=== PATIENT | male | born 1970 | race Two or more races ===

== ENCOUNTER 2020-04-28 22:14 | Inpatient (IN) | payer MEDICAID ==
[~2020-04-28] VITALS: Ht 167.6 cm; Wt 76.9 kg
[2020-04-28 22:15] VITALS: BP 148/89
--- NOTE | 2020-04-28 22:15 | NUR ---
ED Nurse Note: brought in by teri Farrar from [facility] d/t elevated HR of 140 and temp of 101. pt presented to ed with trach and was bagged in to the room. Pt was diaphoretic upon arrival. Pt was tachy of 140s, RT at bedside for vent placement (see intervention for setting), droplet precaution observed, pt placed on monitoring analyst, ermd at bedside.
[2020-04-28] MEDS ORDERED: ATORVASTATIN CA20 MG ORAL (22:30)
[2020-04-28] MEDS ORDERED: DOCUSATE SODIU100 MG GT (22:30)
[2020-04-28] MEDS ORDERED: PROTONIX40 MG GT (22:30)
[2020-04-28] MEDS ORDERED: METOPROLOL TART25 MG GT (22:30)
[2020-04-28] MEDS ORDERED: ASPIRIN81 M3 PO (22:30)
[2020-04-28] MEDS ORDERED: BRILINTA90 MG PO (22:30)
--- NOTE | 2020-04-28 22:30 | NUR ---
ED Nurse Note: barnett inserted per ermd order with 16fr, draining and patent. XR at bedside.
[2020-04-28] MEDS ORDERED: Vancomycin 1 GM in NS 275 ML IVPB ONE (22:45)
[2020-04-28] MEDS ORDERED: Piperacillin/Tazobactam 3.375 GM in NS 110 ML IVPB ONE (22:45)
[2020-04-28 22:50] LABS: BASOPHILS % (AUTO) 0.8 % (0.0-2.0); EOSINOPHILS % (AUTO) 1.1 % (0.0-3.0); HEMOGLOBIN 11.5 G/DL (14.2-18.0); LYMPHOCYTES % (AUTO) 27.9 % (20.0-45.0); MEAN CORPUSCULAR VOLUME 90 FL (80-99); MONOCYTES % (AUTO) 6.7 % (1.0-10.0); NEUTROPHILS % (AUTO) 63.6 % (45.0-75.0); PLATELET COUNT 408 K/UL (150-450); RED CELL DISTRIBUTION WIDTH 13.5 % (11.6-14.8); WHITE BLOOD COUNT 11.4 K/UL (4.8-10.8)
[2020-04-28 22:50] LABS: APPEARANCE,URINE CLEAR; BILIRUBIN, URINE NEGATIVE (NEGATIVE); GLUCOSE, URINE (UA) NEGATIVE (NEGATIVE); KETONES,URINE 1+ (NEGATIVE); LEUKOCYTE ESTERASE ,URINE 1+ (NEGATIVE); NITRITE,URINE NEGATIVE (NEGATIVE); PH,URINE 6 (4.5-8.0); PROTEIN,URINE 1+ (NEGATIVE); UROBILINOGEN,URINE 4 MG/DL (0.0-1.0)
[2020-04-28 22:54] LABS: COLOR,URINE PALE YELLOW
[2020-04-28 23:10] LABS: CALCIUM 9.4 MG/DL (8.5-10.1); CREATININE 1.3 MG/DL (0.55-1.30); POTASSIUM 4.4 MMOL/L (3.5-5.1)
[2020-04-28 23:13] LABS: INR 1.1 (0.9-1.1)
--- NOTE | 2020-04-28 23:15 | NUR ---
renee lopez [phone]
[2020-04-28 23:23] LABS: ALBUMIN/GLOBULIN RATIO 0.6 (1.0-2.7); BILIRUBIN,TOTAL 0.6 MG/DL (0.2-1.0); CKMB 5.6 NG/ML (0.0-3.6)
[2020-04-29] VITALS (33 sets, daily range): BP systolic 89–166; BP diastolic 6–128
--- NOTE | 2020-04-29 00:46 | NUR ---
ED Nurse Note: gave report to Ladan LAKE
--- NOTE | 2020-04-29 01:15 | NUR ---
TRANSFER TO FLOOR: Patient transferred to [facility]- via gurney in stable condition as ordered, per dr. Brambila. Report given to Ladan LAKE.
--- NOTE | 2020-04-29 01:19 | Emergency Room Report ---
History of Present Illness General Chief Complaint: Dyspnea/Respdistress Source: Medical Record Present Illness HPI 50-year-old male with history of STEMI, respiratory failure, tracheostomy not ventilator dependent here with shortness of breath, hypoxia, cough, fever. At the halfway the patient was noted to be tachycardic and have low oxygen saturation. When ambulance arrived the nurses were providing [id number] ventilation. They said the patient is not normally ventilator dependent. There was pink frothy sputum coming from the tracheostomy site. Patient unable to answer question secondary to his normal baseline altered mental status. Allergies: Coded Allergies: No Known Allergies (Unverified , 04/28/20) COVID-19 Screening Contact w/high risk pt: Yes Experienced COVID-19 symptoms?: No COVID-19 Testing performed [employer]: Yes - 04/17/20 COVID-19 Screening: Negative COVID-19 COVID-19 Testing Source: [facility] Nursing Documentation-[facility] Past Medical History: No History, Except For Hx Cardiac Problems: Yes - STEMI,CAD, HYPERLIPIDEMIA Hx Hypertension: Yes Hx Diabetes: Yes Hx Gastrointestinal Problems: Yes - GERD Review of Systems All Other Systems: limited Physical Exam Vital Signs Date Time Temp Pulse Resp B/P (MAP) Pulse Ox O2 Delivery O2 Flow Rate FiO2 04/28/20 22:15 100.9 140 24 150/100 (117) 15 Mechanical Ventilator 15.0 04/28/20 22:15 100 Sp02 EP Interpretation: reviewed General Appearance: other - Appears chronically ill. Diaphoretic. Tachypneic and actively coughing Head: normocephalic, atraumatic Eyes: bilateral eye normal inspection, bilateral eye PERRL ENT: hearing grossly normal, normal pharynx, no angioedema Neck: full range of motion, supple/symm/no masses, other - Tracheostomy in place without any surrounding erythema, induration, active bleeding. Suction positive for pink frothy sputum Respiratory: chest non-tender, other - Tachypneic. Diffuse mechanical breath sounds with overlying rales and rhonchi Cardiovascular #1: no edema, other - Tachycardic 140 bpm, regular rhythm Cardiovascular #2: 2+ carotid (R), 2+ carotid (L), 2+ radial (R), 2+ radial (L), 2+ dorsalis pedis (R), 2+ dorsalis pedis (L) Gastrointestinal: normal bowel sounds, non tender, soft, non-distended, no guarding, no rebound, other - G-tube in place without any surrounding erythema or induration. No rebound or guarding or distention Rectal: deferred Genitourinary: normal inspection, no CVA tenderness Musculoskeletal: back normal, normal range of motion, calf tenderness, gait/station normal, non-tender Neurologic: other - Alert and oriented x0 at baseline. Moving all extremities non-purposefully Psychiatric: other - Altered, chronically ill, nonverbal at baseline Lymphatic: no adenopathy Medical Decision Making Diagnostic Impression: Primary Impression: Respiratory distress Additional Impressions: Septic shock Pneumonia Ventilator associated pneumonia Tachycardia UTI (urinary tract infection) ER Course EKG: Rate 139 bpm. No ischemia, intervals WNL. No ectopy Rhythm strip: patient monitored for arrhythmias - no malignant dysrhythmias, runs of PVCs, nor pauses noted Total critical care time: Approximately 45 minutes Due to a high probability of clinically significant, life threatening deterioration, the patient required the highest level of preparedness to intervene emergently and I personally spent this critical care time directly and personally managing the patient. This critical care time included obtaining a history, examining the patient, pulse oximetry, ordering and reviewing studies, ordering treatments, evaluating response to treatment and updating management plan as needed, frequent reassessment and discussion with other providers as w ell as arranging for ultimate disposition. This critical to care time was performed to assess and manage the high probability of life-threatening deterioration that could result in multiorgan failure. This critical care time is separate from the separately billable procedures and treating other patients. Chest x-ray: Hazy opacities in left lower lobe and right lower lobe. No eff usion. No bony abnormalities. Mediastinum normal. Tracheostomy in place Laboratory Tests Test 04/28/20 22:10 04/28/20 22:25 04/28/20 22:40 04/28/20 23:30 Urine Color Pale yellow Urine Appearance Clear Urine pH 6 (4.5-8.0) Urine Specific [place] 1.025 (1.005-1.035) Urine Protein 1+ (NEGATIVE) H Urine Glucose (UA) Negative (NEGATIVE) Urine Ketones 1+ (NEGATIVE) H Urine Blood Negative (NEGATIVE) Urine Nitrite Negative (NEGATIVE) Urine Bilirubin Negative (NEGATIVE) Urine Urobilinogen 4 MG/DL (0.0-1.0) H Urine Leukocyte Esterase 1+ (NEGATIVE) H Urine RBC 0 /HPF (0 - 0) Urine WBC 0-2 /HPF (0 - 0) Urine Squamous Epithelial Cells Occasional /LPF Urine Bacteria Occasional /HPF (NONE) Urine Mucus Occasional /LPF White Blood Count 11.4 K/UL (4.8-10.8) H Red Blood Count 4.00 M/UL (4.70-6.10) L Hemoglobin 11.5 G/DL (14.2-18.0) L Hematocrit 36.0 % (42.0-52.0) L Mean Corpuscular Volume 90 FL (80-99) Mean Corpuscular Hemoglobin 28.7 PG (27.0-31.0) Mean Corpuscular Hemoglobin Concent 32.0 G/DL (32.0-36.0) Red Cell Distribution Width 13.5 % (11.6-14.8) Platelet Count 408 K/UL (150-450) Mean Platelet Volume 8.6 FL (6.5-10.1) Neutrophils (%) (Auto) 63.6 % (45.0-75.0) Lymphocytes (%) (Auto) 27.9 % (20.0-45.0) Monocytes (%) (Auto) 6.7 % (1.0-10.0) Eosinophils (%) (Auto) 1.1 % (0.0-3.0) Basophils (%) (Auto) 0.8 % (0.0-2.0) Prothrombin Time 11.7 SEC (9.30-11.50) H Prothrombin Time INR 1.1 (0.9-1.1) Activated Partial Thromboplast Time 24 SEC (23-33) Sodium Level 147 MMOL/L (136-145) H Potassium Level 4.4 MMOL/L (3.5-5.1) Chloride Level 107 MMOL/L (98-107) Carbon Dioxide Level 23 MMOL/L (21-32) Anion Gap 18 mmol/L (5-15) H Blood Urea Nitrogen 28 mg/dL (7-18) H Creatinine 1.3 MG/DL (0.55-1.30) Estimated Glomerular Filtration Rate 58.0 mL/min (>60) Glucose Level 175 MG/DL (74-106) H Lactic Acid Level 7.00 mmol/L (0.4-2.0) H 3.50 mmol/L (0.66-2.22) H Calcium Level 9.4 MG/DL (8.5-10.1) Magnesium Level 2.6 MG/DL (1.8-2.4) H Total Bilirubin 0.6 MG/DL (0.2-1.0) Aspartate Amino Transferase (AST) 89 U/L (15-37) H Alanine Aminotransferase (ALT) 49 U/L (12-78) Alkaline Phosphatase 194 U/L (46-116) H Total Creatine Kinase 258 U/L (26-308) Creatine Kinase MB 5.6 NG/ML (0.0-3.6) H Creatine Kinase MB Relative Index 2.1 Troponin I 0.055 ng/mL (0.000-0.056) Total Protein 7.9 G/DL (6.4-8.2) Albumin 3.0 G/DL (3.4-5.0) L Globulin 4.9 g/dL Albumin/Globulin Ratio 0.6 (1.0-2.7) L Arterial Blood pH 7.517 (7.350-7.450) Arterial Blood Partial Pressure CO2 27.8 mmHg (35.0-45.0) L Arterial Blood Partial Pressure O2 482.5 mmHg (75.0-100.0) H Arterial Blood HCO3 22.0 mmol/L (22.0-26.0) Arterial Blood Oxygen Saturation 99.6 % (95-100) Arterial Blood Base Excess 0.2 (-2-2) Hunter Test Positive Microbiology Date/Time Source Procedure Growth Status 04/28/20 23:30 Nasal Nares - Final Complete 04/28/20 23:30 Nasal Nares - Final Complete 04/28/20 22:25 Nasopharynx SARS-CoV-2 RdRp Gene Assay - Final Complete 50-year-old male with tracheostomy not normally ventilator dependent here with shortness of breath. Patient was actively coughing and diaphoretic on arrival to the emergency department. EKG showed sinus tachycardia with evidence of patient's old anterolateral infarct. No active ST or T wave abnormalities. Troponin negative. Chest x-ray showed left lower lobe and right lower lobe consolidations. Patient was febrile at the halfway. Blood pressure remained normal throughout his stay in the emergency department but patient was tachycardic in the 150s on arrival to the emergency department. He immediately received a 30 cc/kg fluid bolus. Heart rate improved to the 120s. Remained in normal sinus rhythm. Started on vancomycin and Zosyn for treatment of ventilator and hospital associated pneumonia. Patient also had evidence of urinary tract infection. Lactic acid 7.0. Repeat lactic acid to be drawn after the 30 cc/kg fluid bolus is completed. Admitted to ICU for septic shock in critical condition. Last Vital Signs Date Time Temp Pulse Resp B/P (MAP) Pulse Ox O2 Delivery O2 Flow Rate FiO2 04/29/20 00:35 99.8 135 33 113/67 100 Mechanical Ventilator 15.0 80 Referrals: Jay Brambila MD (PCP) Srini Bragg M.D. Apr 29, 2020 01:19
--- NOTE | 2020-04-29 01:26 | NUR ---
NURSE NOTES: RECEIVED PATIENT FROM ER NURSE ALEKSANDRA LUCERO VIA SUSSY. PATIENT DROWSY, ON TRACH TO VENT, SIMV 14/TV500/FIO2 70%/PEEP5, O2 SATURATION 1000% NOTED, HR 130'S/MIN ST, ABDOMEN NON TENDER, G TUBE INTACT AND PATENT, CLAMP STATUS, F/C INTACT AND PATENT, DARK YELLOW URINE OUTED, PPL TO RIGHT AC 20G AND LEFT FA 20G, INTACT AND PATENT, PRESSURE SORE TO RIGHT INNER HEEL AND LEFT EAR, MADE LOWER BED POSITION, ON BED ALARM AND LOCKED, WILL CONTINUE TO MONITOR.
--- NOTE | 2020-04-29 02:02 | NUR ---
NURSE NOTES: CALLED DR. LING REGARDING ADMISSION ORDER THAT LEFT MESSAGE AWAIT CALL.
--- NOTE | 2020-04-29 02:24 | NUR ---
NURSE NOTES: le; Patient diaphoretic, open eyes, checked BS 127mg/d noted, applied cooling measure, will continue to monitor.
--- NOTE | 2020-04-29 03:43 | NUR ---
NURSE NOTES: [address] LING REGARDING ADMISSION ORDER THAT LEFT MESSAGE AWAIT CALL AT 0336AM. LET THE ELASTIC ATTACHER OVERLOCK AND WAS AWARE.
--- NOTE | 2020-04-29 04:19 | NUR ---
NURSE NOTES: Called back from the field assembly supervisor that she called and left message, after 30 mins, MD did not callback, she will call MD's home phone.
--- NOTE | 2020-04-29 05:10 | NUR ---
NURSE NOTES: PATIENT ASLEEP STATUS, NO PAIN OR SOB NOTED, HR 120'S/MIN ST, NO ACUTE DISTRESS NOTED AT THIS TIME.
--- NOTE | 2020-04-29 05:40 | NUR ---
NURSE NOTES: RECEIVED ORDER FROM DR. LING, CARRIED OUT AND CALLED RT REGARDING VENT SETTING AC 12/TV 500/FIO2 50%/PEEP 5, ORDERED.
--- NOTE | 2020-04-29 07:23 | NUR ---
HAND-OFF: Report given to ALEKSANDRA LIANG.
--- NOTE | 2020-04-29 08:00 | NUR ---
NURSE NOTES: Pt was assessed after receiving change of shift report from Rohit RN. Pt is obtunded, eyes open, however does not follow commands, withdraws to pain. Pt is on trach to vent, Shiley 6 cuffed, with vent settings AC12, VT500, Peep 5, FIO2 50%, maintaining 100% O2Sat. Bilateral inspiratory/expiratory rhonchi is noted on auscultation. Pt has moderate amount of light pinkish/white thick secretions. NSR on cardiac cath technician. Temp 98.8F axillary. IV fluid NS is infusing at 100ml/hour via peripheral IV access on left wrist #20G. Pt also has 2nd peripheral IV access on right AC #20G, saline locked, patent/intact. PEG, with dressing dry/intact, tube patent, however currently clamped. Luis catheter is present, draining cloudy/dark yellow urine. Skin alterations are present, including left ear open wound and right inner heel DTI. HOB is at 30 degrees, bed locked, three side rails up, call light within reach. Will continue with plan of care.
--- NOTE | 2020-04-29 08:02 | NUR ---
RD ASSESSMENT & RECOMMENDATIONS SEE CARE ACTIVITY FOR COMPLETE ASSESSMENT DAILY ESTIMATED NEEDS: Needs based on Critical care, 67.4kg abw 22-28 kcals/kg 5391-3538 total kcals 1.25-2 g protein/kg 84-135 g total protein 25-30 mL/kg 0837-8901 total fluid mLs NUTRITION DIAGNOSIS: Swallowing difficulty r/t respiratory failure as evidenced by pt is trach and peg dep. CURRENT TF:Glucerna 1.2 @60ml/hr ENTERAL NUTRITION RECOMMENDATIONS: Glucerna 1.2 @60ml/hr x24 hrs + PROSOURCE 1 pack qdaily to provide 1440ml, 1728 kcal, 86g + 11g pro, 1159ml free H2O - Maintain current TF rate and goal as tolerated. - Add Prosource 1 pack qdaily to better meet est pro needs - Flush per MD. HOB over 30 degrees ADDITIONAL RECOMMENDATIONS: 1) Maintain calibrated daily weights 2) Rec to increase water flushes for elev Na and elev BUN 3) Rec WC eval by WC nurse. Add LILIAN BID via PEG 4) Rec POC, niss, accuchecks
[2020-04-29 08:14] LABS: BASOPHILS % (AUTO) 0.6 % (0.0-2.0); EOSINOPHILS % (AUTO) 0.3 % (0.0-3.0); HEMATOCRIT 31.7 % (42.0-52.0); HEMOGLOBIN 10.2 G/DL (14.2-18.0); LYMPHOCYTES % (AUTO) 17.2 % (20.0-45.0); MEAN CORPUSCULAR VOLUME 86 FL (80-99); MONOCYTES % (AUTO) 7.3 % (1.0-10.0); NEUTROPHILS % (AUTO) 74.6 % (45.0-75.0); PLATELET COUNT 320 K/UL (150-450); RED BLOOD COUNT 3.66 M/UL (4.70-6.10); RED CELL DISTRIBUTION WIDTH 12.6 % (11.6-14.8); WHITE BLOOD COUNT 9.5 K/UL (4.8-10.8)
[2020-04-29 08:23] LABS: ANION GAP 8 mmol/L (5-15); BLOOD UREA NITROGEN 23 mg/dL (7-18); CALCIUM 8.6 MG/DL (8.5-10.1); CARBON DIOXIDE 26 MMOL/L (21-32); CHLORIDE 113 MMOL/L (98-107); CREATININE 0.9 MG/DL (0.55-1.30); POTASSIUM 3.6 MMOL/L (3.5-5.1); SODIUM 147 MMOL/L (136-145)
[2020-04-29] MEDS: Ascorbic Acid 500mg tab GT SCH (09:42)
[2020-04-29] MEDS: Zinc Sulfate 220mg GT SCH (09:42)
[2020-04-29] MEDS: Aspirin Baby 81mg NG SCH (09:42)
[2020-04-29] MEDS: Piperacillin/Tazobactam 3.375 GM in NS 110 ML IVPB SCH ×2 (09:42→14:59)
[2020-04-29] MEDS: Docusate 100mg/10ml Liq NG SCH ×3 (09:43→17:16)
[2020-04-29] MEDS: Vancomycin 750mg/NS 275ml IVPB SCH ×4 (09:44→22:34)
--- NOTE | 2020-04-29 10:00 | NUR ---
NURSE NOTES: Pt was seen by Dr. Brambila. Order was received to add Plavix 75mg x1 daily via GT. Order was processed, and med administered along with all AM meds. Oral care was done and pt suctioned. Pt was repositioned for comfort.
--- NOTE | 2020-04-29 10:05 | History & Physical ---
History and Physical History & Physicial 50-year-old male with history of STEMI, respiratory failure, tracheostomy presented with shortness of breath, hypoxia, cough, fever. At the senior care the patient was noted to be tachycardic and have low oxygen saturation. patient with poor LOC due to TBI and significant brain injury PMH trach, GT, craniotomy, ICB MEDS/ALLERGIES reviewed and reconciled PHYSICAL WDWN NAD trach clear breath sounds bilaterally without rhonchi or wheeze S1S2RR tachy without MRG NABS nontender GT no CCE poor LOC SOCIAL snf patient; bed bound Laboratory Tests Test 04/28/20 22:10 04/28/20 22:25 04/28/20 22:40 04/28/20 23:30 Urine Color Pale yellow Urine Appearance Clear Urine pH 6 (4.5-8.0) Urine Specific [place] 1.025 (1.005-1.035) Urine Protein 1+ (NEGATIVE) H Urine Glucose (UA) Negative (NEGATIVE) Urine Ketones 1+ (NEGATIVE) H Urine Blood Negative (NEGATIVE) Urine Nitrite Negative (NEGATIVE) Urine Bilirubin Negative (NEGATIVE) Urine Urobilinogen 4 MG/DL (0.0-1.0) H Urine Leukocyte Esterase 1+ (NEGATIVE) H Urine RBC 0 /HPF (0 - 0) Urine WBC 0-2 /HPF (0 - 0) Urine Squamous Epithelial Cells Occasional /LPF Urine Bacteria Occasional /HPF (NONE) Urine Mucus Occasional /LPF White Blood Count 11.4 K/UL (4.8-10.8) H Red Blood Count 4.00 M/UL (4.70-6.10) L Hemoglobin 11.5 G/DL (14.2-18.0) L Hematocrit 36.0 % (42.0-52.0) L Mean Corpuscular Volume 90 FL (80-99) Mean Corpuscular Hemoglobin 28.7 PG (27.0-31.0) Mean Corpuscular Hemoglobin Concent 32.0 G/DL (32.0-36.0) Red Cell Distribution Width 13.5 % (11.6-14.8) Platelet Count 408 K/UL (150-450) Mean Platelet Volume 8.6 FL (6.5-10.1) Neutrophils (%) (Auto) 63.6 % (45.0-75.0) Lymphocytes (%) (Auto) 27.9 % (20.0-45.0) Monocytes (%) (Auto) 6.7 % (1.0-10.0) Eosinophils (%) (Auto) 1.1 % (0.0-3.0) Basophils (%) (Auto) 0.8 % (0.0-2.0) Prothrombin Time 11.7 SEC (9.30-11.50) H Prothromb Time International Ratio 1.1 (0.9-1.1) Activated Partial Thromboplast Time 24 SEC (23-33) Sodium Level 147 MMOL/L (136-145) H Potassium Level 4.4 MMOL/L (3.5-5.1) Chloride Level 107 MMOL/L (98-107) Carbon Dioxide Level 23 MMOL/L (21-32) Anion Gap 18 mmol/L (5-15) H Blood Urea Nitrogen 28 mg/dL (7-18) H Creatinine 1.3 MG/DL (0.55-1.30) Estimat Glomerular Filtration Rate 58.0 mL/min (>60) Glucose Level 175 MG/DL (74-106) H Lactic Acid Level 7.00 mmol/L (0.4-2.0) H 3.50 mmol/L (0.66-2.22) H Calcium Level 9.4 MG/DL (8.5-10.1) Magnesium Level 2.6 MG/DL (1.8-2.4) H Total Bilirubin 0.6 MG/DL (0.2-1.0) Aspartate Amino Transf (AST/SGOT) 89 U/L (15-37) H Alanine Aminotransferase (ALT/SGPT) 49 U/L (12-78) Alkaline Phosphatase 194 U/L (46-116) H Total Creatine Kinase 258 U/L (26-308) Creatine Kinase MB 5.6 NG/ML (0.0-3.6) H Creatine Kinase MB Relative Index 2.1 Troponin I 0.055 ng/mL (0.000-0.056) Total Protein 7.9 G/DL (6.4-8.2) Albumin 3.0 G/DL (3.4-5.0) L Globulin 4.9 g/dL Albumin/Globulin Ratio 0.6 (1.0-2.7) L Arterial Blood pH 7.517 (7.350-7.450) Arterial Blood Partial Pressure CO2 27.8 mmHg (35.0-45.0) L Arterial Blood Partial Pressure O2 482.5 mmHg (75.0-100.0) H Arterial Blood HCO3 22.0 mmol/L (22.0-26.0) Arterial Blood Oxygen Saturation 99.6 % (95-100) Arterial Blood Base Excess 0.2 (-2-2) Hunter Test Positive Test 04/29/20 07:50 White Blood Count 9.5 K/UL (4.8-10.8) Red Blood Count 3.66 M/UL (4.70-6.10) L Hemoglobin 10.2 G/DL (14.2-18.0) L Hematocrit 31.7 % (42.0-52.0) L Mean Corpuscular Volume 86 FL (80-99) Mean Corpuscular Hemoglobin 28.0 PG (27.0-31.0) Mean Corpuscular Hemoglobin Concent 32.3 G/DL (32.0-36.0) Red Cell Distribution Width 12.6 % (11.6-14.8) Platelet Count 320 K/UL (150-450) Mean Platelet Volume 7.2 FL (6.5-10.1) Neutrophils (%) (Auto) 74.6 % (45.0-75.0) Lymphocytes (%) (Auto) 17.2 % (20.0-45.0) L Monocytes (%) (Auto) 7.3 % (1.0-10.0) Eosinophils (%) (Auto) 0.3 % (0.0-3.0) Basophils (%) (Auto) 0.6 % (0.0-2.0) Sodium Level 147 MMOL/L (136-145) H Potassium Level 3.6 MMOL/L (3.5-5.1) Chloride Level 113 MMOL/L (98-107) H Carbon Dioxide Level 26 MMOL/L (21-32) Anion Gap 8 mmol/L (5-15) Blood Urea Nitrogen 23 mg/dL (7-18) H Creatinine 0.9 MG/DL (0.55-1.30) Estimat Glomerular Filtration Rate > 60 mL/min (>60) Glucose Level 138 MG/DL (74-106) H Lactic Acid Level 1.30 mmol/L (0.4-2.0) Calcium Level 8.6 MG/DL (8.5-10.1) IMPRESSION possible sepsis trach tachycardia respiratory failure chronic mild PCM transaminitis PLAN care noted iv antibiotics ID to see IV hydration vent for now assess off resume snf meds medications/laboratory data/nursing notes/ICU care reviewed in detail note reviewed and edited care discussed with RN and RT ICU time spent >40 minutes Jay Brambila MD Apr 29, 2020 10:05
--- NOTE | 2020-04-29 11:00 | NUR ---
NURSE NOTES: Feeding pump was delivered from central supply, and pt was placed on Glucerna 1.2 at starting rate of 20ml/hour, to slowly titrate up to goal rate of 60.
--- NOTE | 2020-04-29 11:12 | NUR ---
WAITER/WAITRESS TOURIST CLASS NOTE PT is trach vent dependent. Pt is from [facility]. SW spoke w/pt's , Lizz Streeter [phone] (monolingual Amharic) and obtained information. semiconductor dies loader Kip #[id number] assisted w/ interpretation. Pt does not have AD/POA. Lizz confirms she is the primary contact lens blocker and cutter as pt's brother Drake Baig [phone] is difficult to get in contact d/t work. Pt has one 14 y/o child, staying w/ . Per Lizz, pt did not have mental health issue/substance abuse issue. PT was a social ETOH drinker. Pt has hx of Diabetes. There is a copy of POLST placed in the chart w/o MD signature, signed by pt on 04/13/2020. Lizz expresses full code for pt. Lizz does not share any concerns/needs at this time. SW to F/U as needed.
[2020-04-29] MEDS: NovoLOG Insulin Flexpen SUBQ SCH ×3 (11:30→20:40)
[2020-04-29] MEDS ORDERED: Albuterol/Ipratropium 3ml neb HHN SCH (12:00)
--- NOTE | 2020-04-29 12:00 | NUR ---
NURSE NOTES: Pt remains afebrile. VS stable. NS continues to infuse at 100ml/hour. NSR on environmental monitoring specialist.
--- NOTE | 2020-04-29 14:00 | NUR ---
NURSE NOTES: Pt was assessed with the wound care nurse. Dressings were changed. Left ear open wound is staged III. Pt was also placed on pressure release mattress. Per wound care nurse recommendation, pt should be referred to physician wound care consult.
--- NOTE | 2020-04-29 14:54 | NUR ---
NURSE NOTES: Skin and wound assessment:Left Ear pressure ulcer stage 3 0.8x0.8x0.2 with small amount yellow slough and 90% pink granular tissue small amount serosanguineous drainage Thera honey and Optifoam applied. Right heel pressure ulcer DTI 4.8x6.0x0.0 closed dark red fluid filled Cavalon and Otifoam applied.Left foot plantar pressure ulcer DTI 1.3x1.2x0.0 dark red/black in color closed no drainage Cavalon and Optifoam applied.Air mattress overlay was placed on patient during assessment and I spoke with RN taking care of the patient recommend physician wound consult .
--- NOTE | 2020-04-29 15:42 | Cardiology Report ---
APPROVED REPORT EKG Measurement Heart [id number] <Conclusion> Sinus tachycardia Anterolateral infarct, age undetermined Abnormal ECG
--- NOTE | 2020-04-29 16:00 | NUR ---
NURSE NOTES: Pt was cleaned, gown/bed linens were changed. Oral care was done. Pt was repositioned for comfort. VS remain stable. Pt is afebrile.
--- NOTE | 2020-04-29 16:43 | NUR ---
MANAGER TRAININGMETAL MINER BLASTING 50 YO MALE BIBA FROM [facility] TO ER CC HR 143 TEMP 101 SI: RESP FAILURE TRACH/VENT DEPENDENT,LEUKOCYTOSIS T. 101.0 HR 140 RR 24 B/P 148/89 SIMV 14 TV 500 FIO2 80% PEEP 5 WBC 11.4 NA 147 BUN 28 IS: VANCO IV ZOSYN IV IV BOLUS NS X 2700ML ADMITTED TO ICU ICU STATUS DCP RETURN TO [facility]
[2020-04-29] MEDS: Albuterol/Ipratropium 3ml neb HHN SCH (19:04)
--- NOTE | 2020-04-29 19:12 | NUR ---
RESPIRATORY NOTE: Received pt on AC 12, 500VT, 50%, PEEP +5. Pt is trach-dependent w/ a Cuffed, Shiley 6 tube. Pt obtunded. B/S jayda. rhonchi, sxn moderate amounts of thick/thin/frothy, pale-yellow secretions. Vent plugged into red outlet, ambubag at bedside. Pt in no apparent distress at this time. Will continue to monitor pt.
--- NOTE | 2020-04-29 19:30 | NUR ---
NURSE HAND-OFF REPORT: Latest Vital Signs: Temperature 98.5 , Pulse 111 , B/P 108 /69 , Respiratory Rate 18 , O2 SAT 100 , trach to vent, Shiley 6, cuffed, with vent settings AC12, VT 500, Peep 5, FIO2 50%, at 100% O2Sat. Vital Sign Comment: NSR to ST on bus monitor, with HR fluctuating from 90-110 bmp. Pt is on Glucerna 1.2 infusing at 40ml/hour, with zero residual, endorsed to titrate feeding rate up to goal rate of 60 as tolerated by pt. EKG Rhythm: Sinus Tachycardia Rhythm change?: N MD Notified?: - MD Response: Latest Hercules Fall Score: 50 Fall Risk: High Risk Safety Measures: Call light Within Reach, Bed Alarm Zone 3, Side Rails Side Rails x3, Bed position . Fall Precautions: Door Sign Report given to Rohit RN.
--- NOTE | 2020-04-29 19:45 | NUR ---
NURSE NOTES: PATIENT ASLEEP STATUS, NO OPEN EYES TO NAME, ON TRACH TO VENT, AC 12/TV500/FIO2 50%/PEEP5, O2 SATURATION 100%, HR 90'S/MIN SR, ABDOMEN SOFT, NON TENDER, G TUBE INTACT AND PATENT, ONGOING GLUCERNA 1.2 AT 40ML/HR VIA G TUBE, RESIDUE 40ML OUTED, KEPT HOB 30 DEGREES AND ASPIRATION PRECAUTION, F/C INTACT AND PATENT, MARIANNE COLOR URINE OUTED, PPL TO RIGHT AC AND LEFT WRIST, INTACT AND PATENT, ONGOING IV FLUID NS AT 100ML/HR VIA LEFT SIDE PPL, ON P200 BED, MADE LOWER BED POSITION, ON BED ALARM AND LOCKED, WILL CONTINUE TO MONITOR.
--- NOTE | 2020-04-29 20:35 | Diagnostic Imaging Report ---
Indication: Reason For Exam: SOB Technique: One view of the chest Comparison: none Findings: Lungs and pleural spaces are clear. Heart size is normal. There is a tracheostomy Impression: No acute process
[2020-04-29] MEDS: Acetaminophen 650mg/20.3ml GT PRN (20:38)
[2020-04-29] MEDS: Atorvastatin 20mg tab ORAL SCH (20:38)
--- NOTE | 2020-04-29 21:30 | NUR ---
NURSE NOTES: GIVEN TYLENOL 650MG VIA G TUBE FOR PAIN OF 2/10 PRN ORDER AT 2038PM. PATIENT CALM, NO PAIN OR DISTRESS NOTED AT THIS TIME, WILL CONTINUE TO MONITOR.
--- NOTE | 2020-04-29 23:25 | NUR ---
NURSE NOTES: ORAL CARE WAS DONE, NO RESPONSE TO NAME, WILL CONTINUE TO MONITOR.
[2020-04-30] VITALS (27 sets, daily range): BP systolic 93–129; BP diastolic 59–81
[2020-04-30] MEDS: Piperacillin/Tazobactam 3.375 GM in NS 110 ML IVPB SCH ×4 (00:10→23:40)
[2020-04-30] MEDS: Albuterol/Ipratropium 3ml neb HHN SCH ×4 (00:42→20:05)
--- NOTE | 2020-04-30 01:35 | NUR ---
NURSE NOTES: TOLERATED G TUBE FEEDING, VSS, NO DISTRESS NOTED AT THIS TIME, WILL CONTINUE PLAN OF CARE.
--- NOTE | 2020-04-30 03:40 | NUR ---
NURSE NOTES: MORNING CARE AND ORAL CARE WAS DONE, NORMAL BM STATUS.
[2020-04-30] MEDS: NovoLOG Insulin Flexpen SUBQ SCH ×4 (05:55→20:35)
--- NOTE | 2020-04-30 06:10 | NUR ---
NURSE NOTES: NO ACUTE DISTRESS NOTED AT THIS SHIFT.
--- NOTE | 2020-04-30 06:58 | NUR ---
CASE MANAGEMENT: REVIEW SI: RESP FAILURE . SEPSIS . TACHYCARDIA . PNA T 99.0 HR 110 RR 22 BP 98/62 SAT 98% MECH VENT FIO2 50 IS: LAUREN NEB HHN Q6HR VANCOMYCIN IV Q12HR ZOSYN IV Q8HR NS IVF @ 100ML/HR LOPRESSOR GT Q12HR GT FEEDING ICU STATUS DCP: PATIENT IS FROM [facility]
--- NOTE | 2020-04-30 07:14 | NUR ---
NURSE HAND-OFF REPORT: Latest Vital Signs: Temperature 99.0 , Pulse 102 , B/P 108 /75 , Respiratory Rate 19 , O2 SAT 100 , Mechanical Ventilator, O2 Flow Rate 15.0 . Vital Sign Comment: VSS EKG Rhythm: Sinus Tachycardia Rhythm change?: N MD Notified?: N - MD Response: Latest Hercules Fall Score: 70 Fall Risk: High Risk Safety Measures: Call light Within Reach, Bed Alarm Zone 1, Side Rails Side Rails x3, Bed position Low and Locked. Fall Precautions: Yellow Socks Door Sign Patient Fall Education Report given to ALEKSANDRA DAVIS.
--- NOTE | 2020-04-30 07:45 | NUR ---
NURSE NOTES: report received from ALEKSANDRA vail. patient is noted to be on calm and sleeping, currently on mechanical ventilator at AC 12, TV: 500, FIo2 30% and peep of 5 tube feeding is running at 60ml/hr though G-tube, right heel skin has a closed blister and protected with Optifoam. left ear has skin barrier cream with Optifoam surrounding the middle ear.
--- NOTE | 2020-04-30 08:25 | NUR ---
NURSE NOTES: patient has two peripheral IV, a right AC 20g and a Left wrist 20G. both lines are patent with no swelling or leaking when flushed with saline, barnett remains draining clear urine, noted to be on a mechanical ventilator with setting of AC12, TV: 500, fio3 30 % and peep of 5, tube feeding running at 60ml/hr through NG-tube.
--- NOTE | 2020-04-30 08:52 | Critical Care Progress Note ---
Assessment/Plan Assessment/Plan IMPRESSION possible sepsis trach tachycardia respiratory failure chronic mild PCM transaminitis PLAN care noted iv antibiotics ID pending IV hydration vent for now assess off when stable SNF meds feedsing medications/laboratory data/nursing notes/ICU care reviewed in detail note reviewed and edited care discussed with RN and RT ICU time spent >40 minutes Critical Care - Subjective Interval Events: care noted +bcx Condition: critical EKG Rhythm: Sinus Rhythm Residuals: minimal Tube Feeding Tolerated: yes I&O: Intake and Output 04/29/20 04/30/20 18:59 06:59 Intake Total 1959.166 ml 2382.5 ml Output Total 380 ml 490 ml Balance 1579.166 ml 1892.5 ml Intake Free Water 300 ml 200 ml IV Total 1459.166 ml 1512.5 ml Tube Feeding 200 ml 570 ml Other 100 ml Output Urine Total 380 ml 490 ml # Bowel Movements 2 Critical Care - Objective Last 24 Hour Vital Signs Date Time Temp Pulse Resp B/P (MAP) Pulse Ox O2 Delivery O2 Flow Rate FiO2 04/30/20 07:58 111 21 100 Mechanical Ventilator 30 112 21 30 04/30/20 07:00 110 21 126/76 (93) 100 04/30/20 06:00 102 19 108/75 (86) 100 04/30/20 05:00 102 19 102/69 (80) 100 04/30/20 04:30 102 21 103/65 (78) 99 04/30/20 04:00 99.0 102 18 98/62 (74) 98 04/30/20 04:00 Mechanical Ventilator 04/30/20 04:00 102 04/30/20 04:00 30 04/30/20 03:14 102 19 30 04/30/20 03:00 110 22 111/73 (86) 100 04/30/20 02:00 102 19 116/69 (85) 100 04/30/20 01:00 100 24 101/67 (78) 100 04/30/20 00:43 106 29 100 Mechanical Ventilator 40 99 32 50 04/30/20 00:00 40 04/30/20 00:00 98.6 92 19 93/59 (70) 100 04/30/20 00:00 Mechanical Ventilator 04/29/20 23:20 97 04/29/20 23:00 100 27 100/64 (76) 100 10/7/20 22:44 92 19 40 04/29/20 22:00 95 19 89/61 (70) 100 04/29/20 21:00 104 18 95/62 (73) 100 04/29/20 20:39 111 116/74 04/29/20 20:00 50 04/29/20 20:00 Mechanical Ventilator 04/29/20 20:00 98.9 107 12 106/82 (90) 100 04/29/20 19:39 107 04/29/20 19:09 111 18 100 Mechanical Ventilator 50 113 18 50 04/29/20 19:00 111 20 108/69 (82) 100 04/29/20 18:00 98.5 109 17 93/62 (72) 100 04/29/20 17:00 113 28 99/69 (79) 100 04/29/20 16:00 117 04/29/20 16:00 50 04/29/20 16:00 Mechanical Ventilator 04/29/20 16:00 119 29 109/68 (82) 100 04/29/20 15:10 117 25 50 04/29/20 15:00 119 29 109/68 (82) 100 04/29/20 14:00 103 22 93/62 (72) 100 04/29/20 13:00 102 22 90/59 (69) 100 04/29/20 12:00 Mechanical Ventilator 04/29/20 12:00 102 04/29/20 12:00 103 20 108/78 (88) 100 04/29/20 12:00 50 04/29/20 11:10 99 19 50 04/29/20 11:00 98 18 89/51 (64) 100 04/29/20 10:00 112 18 115/81 (92) 100 04/29/20 09:45 120 127/93 04/29/20 09:00 111 18 132/83 (99) 100 Labs: Labs Test 04/28/20 22:10 04/28/20 22:25 04/28/20 22:40 04/28/20 23:30 Urine Color Pale yellow Urine Appearance Clear Urine pH 6 (4.5-8.0) Urine Specific [place] 1.025 (1.005-1.035) Urine Protein 1+ (NEGATIVE) Urine Glucose (UA) Negative (NEGATIVE) Urine Ketones 1+ (NEGATIVE) Urine Blood Negative (NEGATIVE) Urine Nitrite Negative (NEGATIVE) Urine Bilirubin Negative (NEGATIVE) Urine Urobilinogen 4 MG/DL (0.0-1.0) Urine Leukocyte Esterase 1+ (NEGATIVE) Urine RBC 0 /HPF (0 - 0) Urine WBC 0-2 /HPF (0 - 0) Urine Squamous Epithelial Cells Occasional /LPF Urine Bacteria Occasional /HPF (NONE) Urine Mucus Occasional /LPF White Blood Count 11.4 K/UL (4.8-10.8) Red Blood Count 4.00 M/UL (4.70-6.10) Hemoglobin 11.5 G/DL (14.2-18.0) Hematocrit 36.0 % (42.0-52.0) Mean Corpuscular Volume 90 FL (80-99) Mean Corpuscular Hemoglobin 28.7 PG (27.0-31.0) Mean Corpuscular Hemoglobin Concent 32.0 G/DL (32.0-36.0) Red Cell Distribution Width 13.5 % (11.6-14.8) Platelet Count 408 K/UL (150-450) Mean Platelet Volume 8.6 FL (6.5-10.1) Neutrophils (%) (Auto) 63.6 % (45.0-75.0) Lymphocytes (%) (Auto) 27.9 % (20.0-45.0) Monocytes (%) (Auto) 6.7 % (1.0-10.0) Eosinophils (%) (Auto) 1.1 % (0.0-3.0) Basophils (%) (Auto) 0.8 % (0.0-2.0) Prothrombin Time 11.7 SEC (9.30-11.50) Prothromb Time International Ratio 1.1 (0.9-1.1) Activated Partial Thromboplast Time 24 SEC (23-33) Sodium Level 147 MMOL/L (136-145) Potassium Level 4.4 MMOL/L (3.5-5.1) Chloride Level 107 MMOL/L (98-107) Carbon Dioxide Level 23 MMOL/L (21-32) Anion Gap 18 mmol/L (5-15) Blood Urea Nitrogen 28 mg/dL (7-18) Creatinine 1.3 MG/DL (0.55-1.30) Estimat Glomerular Filtration Rate 58.0 mL/min (>60) Glucose Level 175 MG/DL (74-106) Lactic Acid Level 7.00 mmol/L (0.4-2.0) 3.50 mmol/L (0.66-2.22) Calcium Level 9.4 MG/DL (8.5-10.1) Magnesium Level 2.6 MG/DL (1.8-2.4) Total Bilirubin 0.6 MG/DL (0.2-1.0) Aspartate Amino Transf (AST/SGOT) 89 U/L (15-37) Alanine Aminotransferase (ALT/SGPT) 49 U/L (12-78) Alkaline Phosphatase 194 U/L (46-116) Total Creatine Kinase 258 U/L (26-308) Creatine Kinase MB 5.6 NG/ML (0.0-3.6) Creatine Kinase MB Relative Index 2.1 Troponin I 0.055 ng/mL (0.000-0.056) Total Protein 7.9 G/DL (6.4-8.2) Albumin 3.0 G/DL (3.4-5.0) Globulin 4.9 g/dL Albumin/Globulin Ratio 0.6 (1.0-2.7) Arterial Blood pH 7.517 (7.350-7.450) Arterial Blood Partial Pressure CO2 27.8 mmHg (35.0-45.0) Arterial Blood Partial Pressure O2 482.5 mmHg (75.0-100.0) Arterial Blood HCO3 22.0 mmol/L (22.0-26.0) Arterial Blood Oxygen Saturation 99.6 % (95-100) Arterial Blood Base Excess 0.2 (-2-2) Hunter Test Positive Test 04/29/20 07:50 White Blood Count 9.5 K/UL (4.8-10.8) Red Blood Count 3.66 M/UL (4.70-6.10) Hemoglobin 10.2 G/DL (14.2-18.0) Hematocrit 31.7 % (42.0-52.0) Mean Corpuscular Volume 86 FL (80-99) Mean Corpuscular Hemoglobin 28.0 PG (27.0-31.0) Mean Corpuscular Hemoglobin Concent 32.3 G/DL (32.0-36.0) Red Cell Distribution Width 12.6 % (11.6-14.8) Platelet Count 320 K/UL (150-450) Mean Platelet Volume 7.2 FL (6.5-10.1) Neutrophils (%) (Auto) 74.6 % (45.0-75.0) Lymphocytes (%) (Auto) 17.2 % (20.0-45.0) Monocytes (%) (Auto) 7.3 % (1.0-10.0) Eosinophils (%) (Auto) 0.3 % (0.0-3.0) Basophils (%) (Auto) 0.6 % (0.0-2.0) Sodium Level 147 MMOL/L (136-145) Potassium Level 3.6 MMOL/L (3.5-5.1) Chloride Level 113 MMOL/L (98-107) Carbon Dioxide Level 26 MMOL/L (21-32) Anion Gap 8 mmol/L (5-15) Blood Urea Nitrogen 23 mg/dL (7-18) Creatinine 0.9 MG/DL (0.55-1.30) Estimat Glomerular Filtration Rate > 60 mL/min (>60) Glucose Level 138 MG/DL (74-106) Lactic Acid Level 1.30 mmol/L (0.4-2.0) Calcium Level 8.6 MG/DL (8.5-10.1) Objective: WDWN NAD trach clear breath sounds bilaterally without rhonchi or wheeze [id number] without MRG NABS nontender no HSM no CCE poor LOC GT Micro: Microbiology Date/Time Source Procedure Growth Status 04/28/20 23:30 Nasal Nares - Final Complete 04/28/20 23:30 Nasal Nares - Final Complete 04/28/20 22:35 Blood Blood Culture - Preliminary Gram Positive Cocci Resulted 04/28/20 22:25 Nasopharynx SARS-CoV-2 RdRp Gene Assay - Final Complete 04/28/20 22:25 Blood Blood Culture - Preliminary Gram Positive Cocci Resulted 04/28/20 12:27 Rectum VRE Culture - Final Enterococcus Faecium - Vre Complete Accucheck: 158 Jay Brambila MD Apr 30, 2020 08:52
[2020-04-30] MEDS: Ascorbic Acid 500mg tab GT SCH (08:54)
[2020-04-30] MEDS: Zinc Sulfate 220mg GT SCH (08:54)
[2020-04-30] MEDS: Docusate 100mg/10ml Liq NG SCH ×3 (08:54→17:39)
[2020-04-30] MEDS: Aspirin Baby 81mg NG SCH (08:54)
--- NOTE | 2020-04-30 10:25 | NUR ---
NURSE NOTES: vancomycin trough resulted at 4.7, vancomycin order placed for 1100 was discontinued and vancomycin 1.25gm ordered and scheduled to 1200.
[2020-04-30] MEDS ORDERED: INSULIN CHARG5 UNITS SUBQ (10:40)
[2020-04-30] MEDS ORDERED: ACETAMINOP160 MG/51 ORAL (10:40)
[2020-04-30] MEDS ORDERED: LANTUS SOL100 UNIT/1 SUBQ (11:15)
[2020-04-30] MEDS ORDERED: MULTI-DELYN237 ML GT (11:15)
[2020-04-30] MEDS ORDERED: UTI-STAT L3875 MG/31 GT (11:15)
[2020-04-30] MEDS ORDERED: VITAMIN C LIQUID GT (11:15)
[2020-04-30] MEDS ORDERED: Vancomycin 1.25gm/NS Premix IVPB SCH (12:00)
--- NOTE | 2020-04-30 12:32 | NUR ---
NURSE NOTES: Patient remains on mechanical ventilator with setting of Ac 12, TV: 500, Fio2 of 30% with peep of 5 and remains saturations of 97-100%, patient heart rate ranges from 98-100 in sinus tachycardia, tube feeding remains at Glucerna 1.2 at 60ml/hr running through G-tube. blood sugar resultes at 169 and 3 units given to cover. will continue to monitor.
--- NOTE | 2020-04-30 14:35 | NUR ---
NURSE NOTES: Large amount of white frothy suctioned through trach and ventilator tubbing.
--- NOTE | 2020-04-30 16:10 | Consultation ---
History of Present Illness General Date patient seen: Apr 30, 2020 Chief Complaint: Dyspnea/Respdistress Present Illness HPI This is a very unfortunate 50-year-old male with history of STEMI trach PEG who was identified in facility to have shortness of breath saturation admitted to [facility] identified to be septic leukocytosis abnormal labs abnormal imaging admitted to intensive care unit. Surgery was called to evaluate assist with care. Patient seen, patient Evaluated, chart reviewed. Allergies: Coded Allergies: No Known Allergies (Unverified , 04/28/20) Medication History Scheduled Atorvastatin Calcium* (Atorvastatin Calcium*), 20 MG ORAL BEDTIME, (Reported) Cran/Vitc/Mannose/Inulin/Brom (Uti-Stat Liquid), 3,875 MG GT BID, (Reported) Docusate Sodium* (Docusate Sodium*), 100 MG GT BID, (Reported) Metoprolol Tartrate* (Metoprolol Tartrate*), 25 MG GT EVERY 12 HOURS, (Reported) Multivitamin Liquid* (Multi-Delyn*), 15 ML GT DAILY, (Reported) Pantoprazole* (Protonix*), 40 MG GT DAILY, (Reported) Ticagrelor* (Brilinta*), 90 MG PO BID, (Reported) [Vitamin C Liquid], 500 MG GT DAILY, (Reported) Scheduled PRN Acetaminophen* (Acetaminophen*), 640 MG ORAL DAILY PRN for Mild Pain/Temp > 100.5, (Reported) Insulin Glargine (Lantus), 48 SUBQ BID PRN for Hyperglycemia, (Reported) Insulin Human NPH (Novolin N), 1 SUBQ QID PRN for Hyperglycemia, (Reported) Miscellaneous Medications Aspirin (Aspirin), 81 MG PO, (Reported) Patient History Limited by: medical condition History Provided By: Medical Record, PMD Healthcare decision maker Resuscitation status Advanced Directive on File Past Medical/Surgical History Past Medical/Surgical History: (1) Respiratory distress (2) Tachycardia (3) UTI (urinary tract infection) (4) Pneumonia (5) Ventilator associated pneumonia (6) Septic shock Physical Exam General Appearance: moderate distress Lines, tubes and drains: peripheral, central line HEENT: normocephalic, atraumatic, anicteric Neck: trach Respiratory/Chest: on vent Cardiovascular/Chest: normal rate, tachycardia, other Abdomen: soft, no organomegaly, no mass, feeding tube Genitourinary/Rectal: normal rectal exam Extremities: normal inspection, no calf tenderness, normal capillary refill Skin Exam: normal pigmentation, warm/dry Neurologic: alert Last 24 Hour Vital Signs Date Time Temp Pulse Resp B/P (MAP) Pulse Ox O2 Delivery O2 Flow Rate FiO2 04/30/20 15:20 103 25 30 04/30/20 15:00 101 22 112/73 (86) 100 04/30/20 14:00 103 25 116/75 (89) 100 04/30/20 13:31 95 25 100 Mechanical Ventilator 30 100 25 30 04/30/20 13:00 95 22 125/62 (83) 99 04/30/20 12:01 99.9 100 21 111/68 (82) 100 04/30/20 12:00 99 04/30/20 12:00 30 04/30/20 12:00 100 21 111/68 (82) 100 04/30/20 12:00 Mechanical Ventilator 04/30/20 11:10 93 19 30 04/30/20 11:00 98 22 112/73 (86) 100 04/30/20 10:00 96 21 115/72 (86) 100 04/30/20 09:00 112 24 120/77 (91) 100 04/30/20 08:55 112 117/71 04/30/20 08:00 Mechanical Ventilator 04/30/20 08:00 30 04/30/20 08:00 110 04/30/20 08:00 100.2 106 12 105/64 (78) 100 04/30/20 07:58 111 21 100 Mechanical Ventilator 30 112 21 30 04/30/20 07:00 110 21 126/76 (93) 100 04/30/20 06:00 102 19 108/75 (86) 100 04/30/20 05:00 102 19 102/69 (80) 100 04/30/20 04:30 102 21 103/65 (78) 99 04/30/20 04:00 99.0 102 18 98/62 (74) 98 04/30/20 04:00 Mechanical Ventilator 04/30/20 04:00 102 04/30/20 04:00 30 04/30/20 03:14 102 19 30 04/30/20 03:00 110 22 111/73 (86) 100 04/30/20 02:00 102 19 116/69 (85) 100 04/30/20 01:00 100 24 101/67 (78) 100 04/30/20 00:43 106 29 100 Mechanical Ventilator 40 99 32 50 04/30/20 00:00 40 04/30/20 00:00 98.6 92 19 93/59 (70) 100 04/30/20 00:00 Mechanical Ventilator 04/29/20 23:20 97 04/29/20 23:00 100 27 100/64 (76) 100 04/29/20 22:44 92 19 40 04/29/20 22:00 95 19 89/61 (70) 100 04/29/20 21:00 104 18 95/62 (73) 100 04/29/20 20:39 111 116/74 04/29/20 20:00 50 04/29/20 20:00 Mechanical Ventilator 04/29/20 20:00 98.9 107 12 106/82 (90) 100 04/29/20 19:39 107 04/29/20 19:09 111 18 100 Mechanical Ventilator 50 113 18 50 04/29/20 19:00 111 20 108/69 (82) 100 04/29/20 18:00 98.5 109 17 93/62 (72) 100 04/29/20 17:00 113 28 99/69 (79) 100 Intake and Output 04/29/20 04/30/20 19:00 07:00 Intake Total 2076.666 ml 2375.0 ml Output Total 370 ml 500 ml Balance 1706.666 ml 1875.0 ml Intake Free Water 300 ml 200 ml IV Total 1536.666 ml 1485.0 ml Tube Feeding 240 ml 590 ml Other 100 ml Output Urine Total 370 ml 500 ml # Bowel Movements 2 Laboratory Tests Test 04/30/20 09:55 Vancomycin Level Trough 4.7 ug/mL (5.0-12.0) L Height (Feet): 5 Height (Inches): 6.00 Weight (Pounds): 168 Medications Current Medications Medications (Trade) Dose Ordered Sig/Apollo Route PRN Reason Start Time Stop Time Status Last Admin Dose Admin Acetaminophen (Tylenol) 650 mg EVERY 4 HOURS PRN GT Temp >100.5 04/29/20 06:00 05/29/20 05:59 04/29/20 20:38 Al Hydroxide/Mg Hydroxide (Mylanta) 30 ml EVERY 4 HOURS PRN GT Abdominal cramps 04/29/20 06:00 05/29/20 05:59 Albuterol/ Ipratropium (Albuterol/ Ipratropium) 3 ml Q6HRT HHN 04/29/20 19:00 05/04/20 18:59 04/30/20 13:21 Ascorbic Acid (Vitamin C) 500 mg DAILY GT 04/29/20 09:00 05/29/20 08:59 04/30/20 08:54 Aspirin (ASA) 81 mg DAILY NG 04/29/20 09:00 06/13/20 08:59 04/30/20 08:54 Atorvastatin Calcium (Lipitor) 20 mg BEDTIME ORAL 04/29/20 21:00 07/28/20 20:59 04/29/20 20:38 Clopidogrel Bisulfate (Plavix) 75 mg DAILY ORAL 04/29/20 09:00 05/29/20 08:59 04/30/20 08:54 Dextrose (Dextrose 50%) 25 ml Q30M PRN IV Hypoglycemia 04/29/20 07:45 07/28/20 07:44 Dextrose (Dextrose 50%) 50 ml Q30M PRN IV Hypoglycemia 04/29/20 07:45 07/28/20 07:44 Docusate Sodium (Colace) 100 mg THREE TIMES A DAY NG 04/29/20 09:00 05/29/20 08:59 04/30/20 12:31 Insulin Aspart (NovoLOG) BEFORE MEALS AND HS SUBQ 04/29/20 11:30 07/28/20 11:29 04/30/20 12:58 Lansoprazole (Prevacid) 30 mg DAILY GT 04/29/20 09:00 05/29/20 08:59 04/30/20 08:54 Metoprolol Tartrate (Lopressor) 25 mg Q12HR ORAL 04/29/20 09:00 07/28/20 08:59 04/30/20 08:55 Piperacillin Sod/ Tazobactam Sod 3.375 gm/Sodium Chloride 110 ml @ 27.5 mls/hr Q8H IVPB 04/29/20 08:00 05/06/20 07:59 04/30/20 08:54 Sodium Chloride 1,000 ml @ 100 mls/hr Q10H IV 04/29/20 07:00 05/29/20 06:59 04/30/20 12:31 Vancomycin HCl 1.25 gm/Dextrose 275 ml @ 183.333 mls/hr Q8HR@0400,1200,2000 IVPB 04/30/20 20:00 05/05/20 19:59 Zinc Sulfate (Zinc Sulfate) 220 mg DAILY GT 04/29/20 09:00 07/28/20 08:59 04/30/20 08:54 Assessment/Plan Problem List: (1) Respiratory distress ICD Codes: R06.03 - Acute respiratory distress; R65.21 - Severe sepsis with septic shock SNOMED: 938750231 (2) Tachycardia ICD Codes: R00.0 - Tachycardia, unspecified; R65.21 - Severe sepsis with septic shock SNOMED: 8973960 (3) UTI (urinary tract infection) ICD Codes: N39.0 - Urinary tract infection, site not specified SNOMED: 99989026 (4) Pneumonia ICD Codes: J18.9 - Pneumonia, unspecified organism SNOMED: 595251485 (5) Ventilator associated pneumonia ICD Codes: J95.851 - Ventilator associated pneumonia; R65.21 - Severe sepsis with septic shock SNOMED: 950903691 (6) Septic shock Assessment & Plan: 50M with leukocytosis, abnormal labs, sepsis. on admission noted to have abnormal skin concerns Left Ear pressure ulcer stage 3 0.8x0.8x0.2 with small amount yellow slough and 90% pink granular tissue small amount serosanguineous drainage Thera honey and Optifoam applied. Right heel pressure ulcer DTI 4.8x6.0x0.0 closed dark red fluid filled Cavalon and Otifoam applied. Left foot plantar pressure ulcer DTI 1.3x1.2x0.0 dark red/black in color closed no drainage Cavalon and Optifoam applied. Air mattress overlay Turn q2h off load pressure with pillows nutritional optimization abx fluid resuscitation DAILY ESTIMATED NEEDS: Needs based on Critical care, 67.4kg abw 22-28 kcals/kg 7310-8940 total kcals 1.25-2 g protein/kg 84-135 g total protein 25-30 mL/kg 1639-3984 total fluid mLs NUTRITION DIAGNOSIS: Swallowing difficulty r/t respiratory failure as evidenced by pt is trach and peg dep. CURRENT TF:Glucerna 1.2 @60ml/hr ENTERAL NUTRITION RECOMMENDATIONS: Glucerna 1.2 @60ml/hr x24 hrs + PROSOURCE 1 pack qdaily to provide 1440ml, 1728 kcal, 86g + 11g pro, 1159ml free H2O - Maintain current TF rate and goal as tolerated. - Add Prosource 1 pack qdaily to better meet est pro needs - Flush per MD. HOB over 30 degrees ADDITIONAL RECOMMENDATIONS: 1) Maintain calibrated daily weights 2) Rec to increase water flushes for elev Na and elev BUN 3) Rec WC eval by WC nurse. Add LILIAN BID via PEG 4) Rec POC, niss, accuchecks ICD Codes: A41.9 - Sepsis, unspecified organism; R65.21 - Severe sepsis with septic shock SNOMED: 46200951 Jose Laboy Apr 30, 2020 16:10
--- NOTE | 2020-04-30 18:15 | NUR ---
NURSE NOTES: Sponge bath provided for and wound care provided. remains on tube feeding at 60ml/hr ventilator setting remains AC 12, Tv: 500 Fio2 30% and peep of 5.
--- NOTE | 2020-04-30 19:53 | NUR ---
NURSE HAND-OFF REPORT: Latest Vital Signs: Temperature 99.9 , Pulse 103 , B/P 114 /68 , Respiratory Rate 21 , O2 SAT 100 , Mechanical Ventilator, O2 Flow Rate 15.0 . Vital Sign Comment: EKG Rhythm: Sinus Tachycardia Rhythm change?: N MD Notified?: N - MD Response: Latest Hercules Fall Score: 70 Fall Risk: High Risk Safety Measures: Call light Within Reach, Bed Alarm Zone 1, Side Rails Side Rails x3, Bed position Low and Locked. Fall Precautions: Yellow Socks Door Sign Patient Fall Education Report given to ALEKSANDRA Bee.
--- NOTE | 2020-04-30 19:55 | NUR ---
NURSE NOTES: LE; PATIENT ASLEEP STATUS, NO OPEN EYES TO NAME, ON TRACH TO VENT, AC 12/TV500/FIO2 30%/PEEP5, O2 SATURATION 100%, HR 100'S/MIN ST, ABDOMEN SOFT, NON TENDER, G TUBE INTACT AND PATENT, ONGOING GLUCERNA 1.2 AT 60ML/HR VIA G TUBE, NO RESIDUE NOTED, KEPT HOB 30 DEGREES AND ASPIRATION PRECAUTION, F/C INTACT AND PATENT, MARIANNE COLOR URINE OUTED, PPL TO RIGHT AC AND LEFT WRIST, INTACT AND PATENT, ONGOING IV FLUID NS AT 100ML/HR VIA RIGHT SIDE PPL, ON P200 BED, MADE LOWER BED POSITION, ON BED ALARM AND LOCKED, WILL CONTINUE TO MONITOR.
[2020-04-30] MEDS ORDERED: Vancomycin 1.25 GM in NS 275 ML IVPB SCH (20:00)
[2020-04-30] MEDS: Vancomycin 1.25 GM in D5W 275 ML IVPB SCH (20:07)
[2020-04-30] MEDS: Atorvastatin 20mg tab ORAL SCH (20:35)
--- NOTE | 2020-04-30 22:05 | NUR ---
NURSE NOTES: le: ORAL CARE AND REPOSITION WAS DONE, NO PAIN OR SOB NOTED AT THIS TIME.
[2020-05-01] VITALS (7 sets, daily range): BP systolic 79–122; BP diastolic 31–81
--- NOTE | 2020-05-01 00:42 | NUR ---
NURSE NOTES: PATIENT ASLEEP STATUS, TOLERATED G TUBE FEEDING, WILL CONTINUE PLAN OF CARE.
[2020-05-01] MEDS: Albuterol/Ipratropium 3ml neb HHN SCH ×3 (01:00→13:29)
--- NOTE | 2020-05-01 02:10 | NUR ---
NURSE NOTES: NO PAIN OR SOB NOTED AT THIS TIME.
--- NOTE | 2020-05-01 03:20 | NUR ---
HAND-OFF: Report given to ALEKSANDRA RUFFIN.
--- NOTE | 2020-05-01 04:15 | NUR ---
NURSE NOTES: received pt. from Nikki Bee. pt. transferred from ICU to room 244-1-SDU- pt. in bed with eyes [id number]- no signs or symptoms of acute cardiac or respiratory distress noted, bed alarm on, side rails up x'3 and safety brakes engaged, full body assessment done- skin dry heels appear to be dry with flakey skin- pictures taken of left ear, sacral and right heel appears to be DTI- pictures taken- uploaded by Clemente RN, pt. appears to have blood in trach tubing- per endorsement doctor aware, pt. appears to be tolerating current vent settings well- AC 12, TV 500, Fio2 at 30% and peep 5, VS taken temp 99.7- axillary- will apply cooling measures and administer Tylenol per protocol eMAR, head of elevated- aspiration precautions observed, skin precautions observed, isolation precautions noted, RT. AC 20G- IV intact and patent- running NS at 100cc/hr, left wrist 20G iv intact and patent- TKO, will continue to monitor pt. and with plan of care.
[2020-05-01] MEDS: Vancomycin 1.25 GM in D5W 275 ML IVPB SCH (04:18)
[2020-05-01] MEDS: Acetaminophen 650mg/20.3ml GT PRN (04:55)
[2020-05-01] MEDS: NovoLOG Insulin Flexpen SUBQ SCH ×2 (05:31→12:15)
--- NOTE | 2020-05-01 07:07 | NUR ---
HAND-OFF: Report given to ALEKSANDRA White NURSE HAND-OFF REPORT: Important Events on Shift:none Patient Status: fair Diet: Glucerna 1.2 Pending Orders: Pending Results/Labs: Pending MD notification: Latest Vital Signs: Temperature 98.9 , Pulse 88 , B/P 116 /73 , Respiratory Rate 24 , O2 SAT 100 , Mechanical Ventilator, O2 Flow Rate 15.0 . Vital Sign Comment: EKG Rhythm: Sinus Rhythm Rhythm change?: N MD Notified?: N - MD Response: Latest Hercules Fall Score: 70 Fall Risk: High Risk Safety Measures: Call light Within Reach, Bed Alarm Zone 1, Side Rails Side Rails x3, Bed position Low and Locked. Fall Precautions: Yellow Socks Door Sign Patient Fall Education Report given to ALEKSANDRA White- pt. remains stable and no signs of distress noted- aware to f/u on any abnormal am labs.
--- NOTE | 2020-05-01 07:15 | NUR ---
NURSE NOTES: Report received from Aislinn Gilbert RN.Pt resting in bed awake,noted no resp distress,with trach tube to vent ,ordered vent settings tolerated,with on and off dry cough,no signs of pain or discomfort ,SR on the monitor,GTF Glucerna 1.2 at 60 ml /hr no residual noted,Luis cath draining yellow urine,skin warm and dry ,IV sites x2 RAC and Lt wrist,both intact,with IVF running at 100 ml/hr,SR up x2 HOB elevated,bed lock in lowest position will continue with plans of care.
--- NOTE | 2020-05-01 08:32 | Critical Care Progress Note ---
Assessment/Plan Assessment/Plan IMPRESSION possible sepsis trach tachycardia respiratory failure chronic mild PCM transaminitis PLAN care noted iv antibiotics- Vanco x 10 days ID noted vent for now assess off when stable SNF meds dc to snf medications/laboratory data/nursing notes/ICU care reviewed in detail note reviewed and edited care discussed with RN and RT ICU time spent >40 minutes Critical Care - Subjective ROS Limited/Unobtainable: Yes Condition: stable Residuals: minimal Tube Feeding Tolerated: yes I&O: Intake and Output 04/30/20 05/01/20 19:00 07:00 Intake Total 2690.0 ml 2693.166 ml Output Total 535 ml 955 ml Balance 2155.0 ml 1738.166 ml Intake Free Water 300 ml 100 ml IV Total 1640.0 ml 1933.166 ml Tube Feeding 720 ml 600 ml Other 30 ml 60 ml Output Urine Total 535 ml 955 ml # Bowel Movements 1 Critical Care - Objective Last 24 Hour Vital Signs Date Time Temp Pulse Resp B/P (MAP) Pulse Ox O2 Delivery O2 Flow Rate FiO2 05/01/20 08:00 30 05/01/20 08:00 98.9 97 20 112/76 (88) 100 05/01/20 07:49 93 24 100 Mechanical Ventilator 30 94 24 30 05/01/20 05:25 98.9 05/01/20 04:49 30 05/01/20 04:23 88 05/01/20 04:00 30 05/01/20 04:00 Mechanical Ventilator 05/01/20 04:00 99.7 95 24 116/73 (87) 100 05/01/20 03:28 96 19 30 05/01/20 03:00 98 30 79/31 (47) 100 05/01/20 02:00 94 22 122/81 (95) 100 05/01/20 01:00 92 22 120/80 (93) 100 05/01/20 00:00 98.9 108 31 110/68 (82) 100 05/01/20 00:00 Mechanical Ventilator 04/30/20 23:34 90 04/30/20 23:30 108 36 30 04/30/20 23:00 93 21 121/81 (94) 100 04/30/20 22:00 89 17 115/81 (92) 100 04/30/20 21:00 90 19 108/77 (87) 100 04/30/20 20:35 111 122/73 04/30/20 20:00 99.5 113 24 114/69 (84) 94 04/30/20 20:00 30 04/30/20 20:00 Mechanical Ventilator 04/30/20 19:30 110 29 100 Mechanical Ventilator 30 114 29 30 04/30/20 19:00 100 24 113/75 (88) 100 04/30/20 18:00 103 21 114/68 (83) 100 04/30/20 17:00 104 17 129/80 (96) 100 04/30/20 16:01 99.7 102 18 118/78 (91) 100 04/30/20 16:00 Mechanical Ventilator 04/30/20 16:00 102 18 118/78 (91) 100 04/30/20 16:00 30 04/30/20 16:00 100 04/30/20 15:20 103 25 30 04/30/20 15:00 101 22 112/73 (86) 100 04/30/20 14:00 103 25 116/75 (89) 100 04/30/20 13:31 95 25 100 Mechanical Ventilator 30 100 25 30 04/30/20 13:00 95 22 125/62 (83) 99 04/30/20 12:01 99.9 100 21 111/68 (82) 100 04/30/20 12:00 99 04/30/20 12:00 30 04/30/20 12:00 100 21 111/68 (82) 100 04/30/20 12:00 Mechanical Ventilator 04/30/20 11:10 93 19 30 04/30/20 11:00 98 22 112/73 (86) 100 04/30/20 10:00 96 21 115/72 (86) 100 04/30/20 09:00 112 24 120/77 (91) 100 04/30/20 08:55 112 117/71 Labs: Laboratory Tests 04/30/20 09:55: Vancomycin Level Trough 4.7L 05/01/20 04:46: POC Whole Blood Glucose [Pending] Objective: WDWN NAD trach clear breath sounds bilaterally without rhonchi or wheeze [id number] without MRG NABS nontender no HSM no CCE poor LOC GT Micro: Microbiology Date/Time Source Procedure Growth Status 04/28/20 23:30 Nasal Nares - Final Complete 04/28/20 23:30 Nasal Nares - Final Complete 04/28/20 22:35 Blood Blood Culture - Preliminary Staphylococcus Sp Coag Neg Resulted 04/28/20 22:25 Nasopharynx SARS-CoV-2 RdRp Gene Assay - Final Complete 04/28/20 22:25 Blood Blood Culture - Preliminary Staphylococcus Sp Coag Neg Resulted 04/28/20 12:27 Rectum VRE Culture - Final Enterococcus Faecium - Vre Complete 04/28/20 12:27 Nasal Nares MRSA Culture - Final NO METHICILLIN RESISTANT STAPH AUREUS... Complete Accucheck: 143 Jay Brambila MD May 01, 2020 08:32
[2020-05-01] MEDS: Zinc Sulfate 220mg GT SCH (09:00)
[2020-05-01] MEDS: Ascorbic Acid 500mg tab GT SCH (09:00)
[2020-05-01] MEDS: Docusate 100mg/10ml Liq NG SCH ×2 (09:00→13:11)
[2020-05-01] MEDS: Piperacillin/Tazobactam 3.375 GM in NS 110 ML IVPB SCH (09:00)
[2020-05-01] MEDS: Aspirin Baby 81mg NG SCH (09:00)
[2020-05-01] MEDS ORDERED: Tubing IV Secondary IV ONE ×2 (09:29→17:55)
[2020-05-01] MEDS ORDERED: NS 275ml ONE ×2 (09:29→15:39)
--- NOTE | 2020-05-01 09:52 | NUR ---
DISCHARGE PLANNING: NOTE DC ORDER NOTED.CM MADE MERLE AT [facility] AWARE OF DC ORDER. CLINICALS FAXED TO [facility] FOR REVIEW
--- NOTE | 2020-05-01 10:00 | NUR ---
NURSE NOTES: Oral/tracheal secretions suctioned,pt noted coughing out bloody oral secretions ,Resp therapist notified,having difficulty passing tracheal suction.
--- NOTE | 2020-05-01 10:34 | Surgery Progress Note ---
Surgery Progress Note Subjective Additional Comments afebrile, HD stable, wbc resolved, lactic acidosis resolved electrolytes being replaced Objective Last 24 Hour Vital Signs Date Time Temp Pulse Resp B/P (MAP) Pulse Ox O2 Delivery O2 Flow Rate FiO2 05/01/20 09:00 103 112/76 05/01/20 08:00 30 05/01/20 08:00 Mechanical Ventilator 05/01/20 08:00 103 05/01/20 08:00 98.9 97 20 112/76 (88) 100 05/01/20 08:00 Mechanical Ventilator 05/01/20 07:49 93 24 100 Mechanical Ventilator 30 94 24 30 05/01/20 05:25 98.9 05/01/20 04:49 30 05/01/20 04:23 88 05/01/20 04:00 30 05/01/20 04:00 Mechanical Ventilator 05/01/20 04:00 99.7 95 24 116/73 (87) 100 05/01/20 03:28 96 19 30 05/01/20 03:00 98 30 79/31 (47) 100 05/01/20 02:00 94 22 122/81 (95) 100 05/01/20 01:00 92 22 120/80 (93) 100 05/01/20 00:00 98.9 108 31 110/68 (82) 100 05/01/20 00:00 Mechanical Ventilator 04/30/20 23:34 90 04/30/20 23:30 108 36 30 04/30/20 23:00 93 21 121/81 (94) 100 04/30/20 22:00 89 17 115/81 (92) 100 04/30/20 21:00 90 19 108/77 (87) 100 04/30/20 20:35 111 122/73 04/30/20 20:00 99.5 113 24 114/69 (84) 94 04/30/20 20:00 30 04/30/20 20:00 Mechanical Ventilator 04/30/20 19:30 110 29 100 Mechanical Ventilator 30 114 29 30 04/30/20 19:00 100 24 113/75 (88) 100 04/30/20 18:00 103 21 114/68 (83) 100 04/30/20 17:00 104 17 129/80 (96) 100 04/30/20 16:01 99.7 102 18 118/78 (91) 100 04/30/20 16:00 Mechanical Ventilator 04/30/20 16:00 102 18 118/78 (91) 100 04/30/20 16:00 30 04/30/20 16:00 100 04/30/20 15:20 103 25 30 04/30/20 15:00 101 22 112/73 (86) 100 04/30/20 14:00 103 25 116/75 (89) 100 04/30/20 13:31 95 25 100 Mechanical Ventilator 30 100 25 30 04/30/20 13:00 95 22 125/62 (83) 99 04/30/20 12:01 99.9 100 21 111/68 (82) 100 04/30/20 12:00 99 04/30/20 12:00 30 04/30/20 12:00 100 21 111/68 (82) 100 04/30/20 12:00 Mechanical Ventilator 04/30/20 11:10 93 19 30 04/30/20 11:00 98 22 112/73 (86) 100 I&O Intake and Output 04/30/20 05/01/20 19:00 07:00 Intake Total 2690.0 ml 2693.166 ml Output Total 535 ml 955 ml Balance 2155.0 ml 1738.166 ml Intake Free Water 300 ml 100 ml IV Total 1640.0 ml 1933.166 ml Tube Feeding 720 ml 600 ml Other 30 ml 60 ml Output Urine Total 535 ml 955 ml # Bowel Movements 1 Dressing: saturated Cardiovascular: RSR Respiratory: decreased breath sounds Abdomen: soft, non-tender, present bowel sounds Extremities: no edema, no tenderness, no cyanosis Laboratory Tests Test 05/01/20 04:46 POC Whole Blood Glucose Pending Plan Problems: (1) Respiratory distress (2) Tachycardia (3) UTI (urinary tract infection) (4) Pneumonia (5) Ventilator associated pneumonia (6) Septic shock Assessment & Plan: 50M with leukocytosis, abnormal labs, sepsis. on admission noted to have abnormal skin concerns Left Ear pressure ulcer stage 3 0.8x0.8x0.2 with small amount yellow slough and 90% pink granular tissue small amount serosanguineous drainage Thera honey and Optifoam applied. Right heel pressure ulcer DTI 4.8x6.0x0.0 closed dark red fluid filled Cavalon and Otifoam applied. Left foot plantar pressure ulcer DTI 1.3x1.2x0.0 dark red/black in color closed no drainage Cavalon and Optifoam applied. Air mattress overlay Turn q2h off load pressure with pillows nutritional optimization abx fluid resuscitation lactic acidosis resolved with fluids cont abx DAILY ESTIMATED NEEDS: Needs based on Critical care, 67.4kg abw 22-28 kcals/kg 5338-5477 total kcals 1.25-2 g protein/kg 84-135 g total protein 25-30 mL/kg 9032-0753 total fluid mLs NUTRITION DIAGNOSIS: Swallowing difficulty r/t respiratory failure as evidenced by pt is trach and peg dep. CURRENT TF:Glucerna 1.2 @60ml/hr ENTERAL NUTRITION RECOMMENDATIONS: Glucerna 1.2 @60ml/hr x24 hrs + PROSOURCE 1 pack qdaily to provide 1440ml, 1728 kcal, 86g + 11g pro, 1159ml free H2O - Maintain current TF rate and goal as tolerated. - Add Prosource 1 pack qdaily to better meet est pro needs - Flush per MD. HOB over 30 degrees ADDITIONAL RECOMMENDATIONS: 1) Maintain calibrated daily weights 2) Rec to increase water flushes for elev Na and elev BUN 3) Rec WC eval by WC nurse. Add LILIAN BID via PEG 4) Rec POC, niss, Jose Chua May 01, 2020 10:34
--- NOTE | 2020-05-01 12:00 | NUR ---
NURSE NOTES: Pt resting in bed asleep stable noted no resp distress .
--- NOTE | 2020-05-01 12:24 | NUR ---
DISCHARGE DISPOSITION: PLEASE READ PATIENT TO BE DISCHARGED TO [facility] [address] T: [phone]>> CALL FOR REPORT [facility] ETA 1430 W/ RT CM S/W [facility] [phone] SHE AGREEABLE TO TRANSFER BACK TO SNF TRANSFER REPORT TO BE DELIVERED
--- NOTE | 2020-05-01 14:30 | NUR ---
NURSE NOTES: Pt with discharge orders to [facility],bed bath given,pt with large BM to soft brown stools.Luis cath removed .
--- NOTE | 2020-05-01 15:00 | NUR ---
NURSE NOTES: Ambulance personnel here to pick remover pt,report given.Called [facility] for report,spoke with CHARIS RN,updated re pt's status,medications ETA and.informed pt will be continuing to have Vancomycin IV ,Pt will be discharge with heplock to [facility] and LT wrist,verbalized understanding.
--- NOTE | 2020-05-01 15:20 | NUR ---
NURSE NOTES: Pt discharged and out of the unit accompanied by ambulance personell,awake,obtunded,in no resp distress connected to portable vent.
--- NOTE | 2020-05-02 19:30 | Discharge Summary ---
Discharge Summary Discharge Summary _ DATE OF ADMISSION: 04/28/2020 DATE OF DISCHARGE: 05/01/2020 DISCHARGED BY: Dr. Esperanza Brambila CONSULTANTS: Dr. Jose Laboy BRIEF HOSPITAL COURSE: Patient is a 50-year-old male with history of STEMI, respiratory failure, tracheostomy, presented to ED due to shortness of breath, hypoxia, cough, and fever. At the senior living, patient was noted to be tachycardic and had low oxygen saturation. Patient is normally vent dependent. There was pink frothy sputum coming out from tracheostomy site. Upon evaluation at ED, patient was febrile. Blood work showed WBC of 11. Hemoglobin and hematocrit were stable. Electrolytes were normal. Lactic acid 7.0. Chest x-ray showed opacities in the left lower lobe and right lower lobe. Patient was given IV antibiotics. He was then admitted for evaluation of sepsis. Patient was admitted to ICU. He was given IV fluids. [facility] medications were resumed. He was given vancomycin. On admission, he was noted to have left ear pressure ulcer stage III, right heel pressure ulcer DTI, and left foot plantar pressure ulcer DTI. He was given local wound care. He was placed on overlay mattress with frequent repositioning and offloading. Nutrition was optimized. Blood culture showed growth of Staphylococcus. Rapid COVID-19 test was negative. Patient was cleared for discharge back to senior living to continue IV antibiotics. FINAL DIAGNOSES: Possible sepsis Chronic respiratory failure on trach and vent Tachycardia Mild protein calorie malnutrition Transaminitis Deep tissue pressure injury, present on admission DISPOSITION: Patient was discharged back to [facility]. DISCHARGE MEDICATIONS: Refer to Discharge Medication List. I have been assigned to complete a discharge summary on this account, I was not involved with the patient's management.--TATI Cameron Jacqueline Robles NP May 02, 2020 19:30
== END 2020-05-01 15:40 | DRG 720 ==
LOC: EDBD 22:14 → EMR 22:28 → ICU 22:37 → EDBEDREQ 23:52 → 2W 05-01 04:06
PROC: 5A1945Z Respiratory Ventilation, 24-96 Consecutive Hours (ICD-10-PCS; principal; 2020-04-28)
DX: A41.9 Sepsis, unspecified organism (principal); R65.21 Severe sepsis with septic shock; J95.851 Ventilator associated pneumonia; Y84.8 Other medical procedures as the cause of abnormal reaction of the patient, or of later complication, without mention of misadventure at the time of the procedure; N39.0 Urinary tract infection, site not specified; E44.1 Mild protein-calorie malnutrition; J96.10 Chronic respiratory failure, unspecified whether with hypoxia or hypercapnia; I25.2 Old myocardial infarction; Z43.0 Encounter for attention to tracheostomy; I25.10 Atherosclerotic heart disease of native coronary artery without angina pectoris; E78.5 Hyperlipidemia, unspecified; R74.01 Elevation of levels of liver transaminase levels; L89.893 Pressure ulcer of other site, stage 3; L89.616 Pressure-induced deep tissue damage of right heel; L89.896 Pressure-induced deep tissue damage of other site
CPT/HCPCS: 36415; 71045; 80048; 80053; 80202; 81003; 82550; 82553; 82803; 82962; 83605; 83735; 84484; 85025; 85610; 85730; 86710; 86850; 86900; 86901; 87040; 87081; 87181; 93005; 94002; 94003; 94664; 96365; 96368; 99291; J1815; J7030; J7620; U0002